=== PATIENT | male | born 1990 | race Caucasian/White ===

== ENCOUNTER → 2018-07-06 | Outpatient (CLI) | payer BC | LOC: COL.RAD 10:16 → EDBD 10:30 | DX: K76.9 Liver disease, unspecified (principal) ==

== ENCOUNTER → 2018-09-10 | Outpatient (CLI) | payer BC | LOC: COL.RAD 08-22 08:15 | DX: M17.11 Unilateral primary osteoarthritis, right knee (principal) ==

== ENCOUNTER → 2018-11-23 | Outpatient (CLI) | payer BC | LOC: COL.RAD 08:06 | DX: M47.816 Spondylosis without myelopathy or radiculopathy, lumbar region (principal); M43.16 Spondylolisthesis, lumbar region; M51.26 Other intervertebral disc displacement, lumbar region; M48.061 Spinal stenosis, lumbar region without neurogenic claudication; M12.88 Other specific arthropathies, not elsewhere classified, other specified site ==